=== PATIENT | female | born 1945 | race Caucasian/White ===

== ENCOUNTER 2017-07-31 22:18 | Emergency (ER) | payer MEDICARE, OTHER ==
[~2017-07-31] VITALS: Ht 170.2 cm; Wt 107.0 kg
[~2017-07-31 22:18] MED LIST: ADVAIR 500/501 EA INH; ALLOPURINOL300 MG PO; BENICAR20 MG PO; METFORMIN HCL500 MG PO; MONTELUKAST SOD10 MG PO; OMEGA PLUS; PRAVASTATIN SOD40 MG PO; PROBIOTIC; VENTOLIN HFA18 GM; Z VITAMIN D PO; Z.0.BENTYL20 MG PO; Z.0.GLUCOPHAGE1000 M PO; Z.0.PRAVACHOL80 MG PO; Z.0.PROTONIX40 MG PO; Z.0.SYNTHROID175 MCG PO; Z.1.LISINOPRIL-HCT1 PO
[2017-07-31 23:09] LABS: BASOPHILS % 0.7 % (0.0-1.0); BILIRUBIN,URINE NEGATIVE (NEGATIVE); EOSINOPHILS # (AUTO) 0.1 (0.0-0.4); HEMOGLOBIN 12.4 g/dL (12.0-16.0); KETONES,URINE NEGATIVE (NEGATIVE); LEUKOCYTE ESTERASE ,URINE NEGATIVE (NEGATIVE); LYMPHOCYTES # (AUTO) 1.1 (1.0-3.2); LYMPHOCYTES % 20.5 % (18.0-39.1); MEAN CORPUSCULAR HEMOGLOBIN 31.2 pg (28-32); MEAN CORPUSCULAR HGB CONC 33.5 g/dL (31-35); MONOCYTES # (AUTO) 0.4 (0.2-0.8); MONOCYTES % 8.1 % (4.4-11.3); NEUTROPHILS # (AUTO) 3.7 (2.1-6.9); NEUTROPHILS % 68.3 % (38.7-80.0); NITRITE,URINE NEGATIVE (NEGATIVE); PLATELET COUNT 193 x10e3/uL (140-360); PROTEIN,URINE DIPSTICK NEGATIVE (NEGATIVE); RED BLOOD COUNT 3.98 x10e6/uL (3.6-5.1); RED CELL DISTRIBUTION WIDTH 13.9 % (11.7-14.4); URINE UROBILINOGEN 0.2 mg/dL (0.2 - 1)
[2017-07-31 23:10] LABS: CLARITY,URINE CLEAR (CLEAR); COLOR,URINE YELLOW (YELLOW)
[2017-07-31 23:21] LABS: INR 1.02; PARTIAL THROMBOPLASTIN TIME 24.8 seconds (23.8-35.5); PROTHROMBIN TIME 12.6 seconds (11.9-14.5)
[2017-07-31 23:24] LABS: BACTERIA,URINE RARE /HPF; EPITHELIAL CELLS,URINE FEW /LPF; RBC,URINE 0-5 /HPF (0-5); WBC,URINE (MAN) 0-5 /HPF (0-5)
[2017-07-31 23:35] LABS: ALANINE AMINOTRANSFERASE 16 IU/L (0-55); ALBUMIN 4.2 g/dL (3.5-5.0); ALBUMIN/GLOBULIN RATIO 1.4 (0.8-2.0); ALKALINE PHOSPHATASE 66 IU/L (40-150); ANION GAP 13.8 mmol/L (8-16); BLOOD UREA NITROGEN 22 mg/dL (7-26); BUN/CREATININE RATIO 25 (6-25); CALCIUM 9.7 mg/dL (8.4-10.2); CARBON DIOXIDE 28 mmol/L (22-29); CHLORIDE 104 mmol/L (98-107); CREATINE KINASE 42 IU/L (29-168); CREATININE, SERUM 0.87 mg/dL (0.57-1.11); EST GLOMERULAR FILTRATION RATE > 60 ML/MIN (60-); GLUCOSE 109 mg/dL (74-118); MAGNESIUM 1.7 MG/DL (1.3-2.1); POTASSIUM 3.8 mmol/L (3.5-5.1); SODIUM 142 mmol/L (136-145)
--- NOTE | 2017-08-01 00:26 | Diagnostic Imaging Report ---
EXAMINATION: CHEST 2 VIEWS INDICATION: Shortness of breath COMPARISON: None FINDINGS: TUBES and LINES: None. LUNGS: Lungs are well inflated. Left lower lobe retrocardiac atelectasis. There is no evidence of pneumonia or pulmonary edema. PLEURA: No pleural effusion or pneumothorax. HEART AND MEDIASTINUM: The cardiomediastinal silhouette is unremarkable. There are atherosclerotic calcifications within the aorta. BONES AND SOFT TISSUES: No acute osseous lesion. Soft tissues are unremarkable. UPPER ABDOMEN: No free air under the diaphragm. IMPRESSION: No acute thoracic abnormality. Signed by: Dr. Guevara Leavitt M.D. on 08/01/2017 12:23 AM
[2017-08-01 01:03] VITALS: BP 141/81
== END 2017-08-01 01:18 | disposition home or self-care (01) ==
LOC: ER 22:18
DX: R00.2 Palpitations (principal)
CPT/HCPCS: 36415; 71046; 80053; 81001; 82550; 82553; 83735; 84484; 85025; 85610; 85730; 87086; 93005; 99284

== ENCOUNTER → 2019-03-08 | Day surgery (SDC) | payer MEDICARE, OTHER ==
[~2019-03-08] MED LIST changes: +ACTONEL35 MG PO; +ALBUTEROL0.63 MG/3 NEB; +ATORVASTATIN CA20 MG PO; +FENTANYL CITRATE/PF 100MCG/2 ML INJ ONE; +MIDAZOLAM HCL 2 MG/2 ML VIAL ONE; +OR PHACO EYE KIT ONE; +PREOP PHACO EYE KIT ONE; +SYMBICORT 16010.2 GM INH; +SYNTHROID50 MCG PO; +VENTOLIN HFA18 GM INH
--- OUTSIDE RECORDS SUMMARY | 2019-03-08 06:16 | XMS REPORT ---
Author Author [facility] Address Unknown Phone Unavailable Care Team Providers Care Date Pitter Name Role Phone Patrick SETH Unavailable Unavailable Problems This patient has no known problems. Allergies, Adverse Reactions, Alerts This patient has no known allergies or adverse reactions. Medications This patient has no known medications. Results Test Description Test Time Test Comments Text Results Atomic Results Result Comments CHEST 2 VIEWS [place] [address] Patient Name: HUSAM MARQUEZ MR #: [id number] : 1945 Age/Sex: 72/F Req #: [id number] Adm Physician: Ordered by: AVA SETH MD Report #: [id number] Location: ER Room/Bed: Procedure: [id number] DX/CHEST 2 VIEWS Exam Date: 07/31/17 Exam Time: 2335 REPORT STATUS: Signed EXAMINATION: CHEST 2 VIEWS INDICATION: Shortness of breath COMPARISON: None FINDINGS: TUBES and LINES: None. LUNGS: Lungs are well inflated. Left lower lobe retrocardiac atelectasis. There is no evidence of pneumonia or pulmonary edema. PLEURA: No pleural effusion or pneumothorax. HEART AND MEDIASTINUM: The cardiomediastinal silhouette is unremarkable. There are atherosclerotic calcifications within the aorta. BONES AND SOFT TISSUES: No acute osseous lesion. Soft tissues are unremarkable. UPPER ABDOMEN: No free air under the diaphragm. IMPRESSION: No acute thoracic abnormality. Signed by: Dr. Guevara Leavitt M.D. on 08/01/2017 12:23 AM Dictated By: GUEVARA RESTREPO MD Transcribed By: KING on 08/01/1722 COPY TO: AVA SETH MD
[2019-03-08 08:40] VITALS: BP 144/81
== END | disposition home or self-care (01) ==
LOC: OR 06:08
PROVIDERS: ATTEND Ophthalmology
DX: H25.12 Age-related nuclear cataract, left eye (principal); E03.9 Hypothyroidism, unspecified; I10 Essential (primary) hypertension; J44.9 Chronic obstructive pulmonary disease, unspecified; E11.9 Type 2 diabetes mellitus without complications; Z88.8 Allergy status to other drugs, medicaments and biological substances; Z87.891 Personal history of nicotine dependence
CPT/HCPCS: 66984; J2250; J3010

== ENCOUNTER 2020-12-14 19:26 | Emergency (ER) | payer MEDICARE, OTHER ==
[~2020-12-14] VITALS: Ht 170.2 cm; Wt 107.0 kg
[~2020-12-14 19:26] MED LIST changes: -FENTANYL CITRATE/PF 100MCG/2 ML INJ ONE; -MIDAZOLAM HCL 2 MG/2 ML VIAL ONE; -OR PHACO EYE KIT ONE; -PREOP PHACO EYE KIT ONE
[2020-12-14] MEDS ORDERED: SODIUM CHLORIDE 0.9% 50ML 50 ML ONE (20:54)
[2020-12-14] MEDS ORDERED: IOPAMIDOL 370 MG/ML 200 ML INFUS..BTL INJ ONE (20:54)
[2020-12-14] MEDS ORDERED: AZITHROMYCIN250 MG PO (23:44)
[2020-12-14] MEDS ORDERED: PREDNISONE20 MG PO (23:44)
[2020-12-14] MEDS ORDERED: VENTOLIN HFA18 GM INH (23:44)
== END 2020-12-14 23:55 | disposition home or self-care (01) ==
LOC: FSED 19:48
DX: R06.00 Dyspnea, unspecified (principal); I27.82 Chronic pulmonary embolism; R07.89 Other chest pain; K21.9 Gastro-esophageal reflux disease without esophagitis; Z87.19 Personal history of other diseases of the digestive system
CPT/HCPCS: 71260; 80053; 81003; 82553; 83880; 84484; 85025; 85379; 99284; Q9967

== ENCOUNTER 2022-09-26 11:47 | Inpatient (IN) | payer MEDICARE, OTHER ==
[~2022-09-26] VITALS: Ht 167.6 cm; Wt 117.9 kg
[2022-09-26] VITALS (7 sets, daily range): BP systolic 14–136; BP diastolic 65–80
[~2022-09-26 11:47] MED LIST changes: +AZITHROMYCIN250 MG PO; +PREDNISONE20 MG PO
[2022-09-26] MEDS ORDERED: METOPROLOL SUCC50 MG PO (12:54)
[2022-09-26] MEDS ORDERED: SYNTHROID137 MCG PO (12:54)
[2022-09-26] MEDS ORDERED: FUROSEMIDE20 MG PO (13:05)
[2022-09-26] MEDS ORDERED: BREZTRI AEROS10.7 GM INH (13:05)
[2022-09-26] MEDS ORDERED: ELIQUIS5 MG PO (13:05)
[2022-09-26] MEDS ORDERED: IPRAT-ALBUT 0.5-3 ML INH (13:05)
[2022-09-26] MEDS ORDERED: SIMETHICONE 80 MG CHEW PO PRN (13:30)
[2022-09-26] MEDS ORDERED: DOCUSATE SODIUM 100 MG CAP PO PRN (13:30)
[2022-09-26] MEDS ORDERED: HYDRALAZINE HCL 20 MG/ML VIAL IV PRN (13:30)
[2022-09-26] MEDS ORDERED: DEXTROSE 50% SYRINGE 50 ML IV PRN (13:30)
[2022-09-26] MEDS ORDERED: BENZONATATE 100 MG CAP PO PRN (13:30)
[2022-09-26] MEDS ORDERED: DIPHENHYDRAMINE HCL 25 MG CAP PO PRN (13:30)
[2022-09-26] MEDS ORDERED: ONDANSETRON HCL INJ 2MG/ML 2ML 2 MG/ML VIAL IV PRN (13:30)
[2022-09-26] MEDS ORDERED: LIDOCAINE 4% PATCH TP PRN (13:30)
[2022-09-26] MEDS ORDERED: POTASSIUM CHLORIDE 20 MEQ TAB CR PO PRN (13:30)
[2022-09-26] MEDS ORDERED: DICYCLOMINE HCL10 MG PO (13:42)
[2022-09-26] MEDS ORDERED: URO-MP CAPSULE1 EACH PO (13:42)
[2022-09-26] MEDS ORDERED: SULFAMETHOXAZO1 EACH PO (13:42)
[2022-09-26] MEDS ORDERED: [UNRECOGNIZED DRUG - OTHER] PO PRN (14:30)
[2022-09-26] MEDS ORDERED: DICYCLOMINE HCL 10 MG CAP PO PRN (14:30)
[2022-09-26] MEDS: TRAMADOL HCL 50 MG TAB PO PRN ×2 (15:44→21:29)
[2022-09-26] MEDS ORDERED: APIXABAN 5 MG TABLET PO SCH (17:00)
[2022-09-26] MEDS ORDERED: METOPROLOL SUCCINATE 50 MG TAB XL PO SCH (17:00)
[2022-09-26] MEDS: ALBUTEROL/IPRATROPIUM 3 ML NEB NEB PRN (18:45)
[2022-09-26] MEDS: NON-FORMULARY MEDICATION (Budesonide/Glycopyr/Formoterol (Breztri Aerosphere Inhaler) 2 IN INH SCH (19:50)
[2022-09-26] MEDS: APIXABAN 5 MG TABLET PO SCH (20:37)
[2022-09-26] MEDS: METOPROLOL SUCCINATE 50 MG TAB XL PO SCH (20:37)
[2022-09-26] MEDS: LEVOTHYROXINE SODIUM 25 MCG TABLET PO SCH (20:38)
[2022-09-26] MEDS: LEVOTHYROXINE SODIUM 112 MCG TAB PO SCH (20:38)
[2022-09-26] MEDS ORDERED: MELATONIN 5 MG TABLET PO PRN (21:00)
[2022-09-27] VITALS (7 sets, daily range): BP systolic 127–143; BP diastolic 64–78
[2022-09-27] MEDS: TRAMADOL HCL 50 MG TAB PO PRN ×2 (04:47→12:45)
[2022-09-27] MEDS: ALBUTEROL/IPRATROPIUM 3 ML NEB NEB PRN ×2 (06:00→18:12)
[2022-09-27] MEDS: NON-FORMULARY MEDICATION (Budesonide/Glycopyr/Formoterol (Breztri Aerosphere Inhaler) 2 IN INH SCH ×2 (07:00→19:00)
[2022-09-27 07:34] LABS: ALBUMIN 3.6 g/dL (3.5-5.0); ALBUMIN/GLOBULIN RATIO 1.2 (0.8-2.0); ANION GAP 14.6 mmol/L (8-16); CALCIUM 9.4 mg/dL (8.4-10.2); CREATININE, SERUM 0.74 mg/dL (0.57-1.11); POTASSIUM 4.6 mmol/L (3.5-5.1)
[2022-09-27 07:59] LABS: THYROID STIMULATING HORMONE 2.649 uIU/mL (0.350-4.940)
[2022-09-27] MEDS ORDERED: APIXABAN 5 MG TABLET PO SCH (09:00)
[2022-09-27] MEDS: APIXABAN 5 MG TABLET PO SCH ×2 (09:50→21:03)
[2022-09-27] MEDS: METOPROLOL SUCCINATE 50 MG TAB XL PO SCH ×2 (09:50→21:03)
[2022-09-27] MEDS: LEVOTHYROXINE SODIUM 112 MCG TAB PO SCH (21:03)
[2022-09-27] MEDS: LEVOTHYROXINE SODIUM 25 MCG TABLET PO SCH (21:04)
[2022-09-27] MEDS: Vancomycin IV 1 GM in SODIUM CHLORIDE 0.9% 250ML 250 ML IV SCH (21:04)
[2022-09-28] VITALS (8 sets, daily range): BP systolic 117–136; BP diastolic 55–88
[2022-09-28] MEDS: TRAMADOL HCL 50 MG TAB PO PRN (04:01)
[2022-09-28 06:24] LABS: BASOPHILS % 0.5 % (0.0-1.0); EOSINOPHILS # (AUTO) 0.1 (0.0-0.4); EOSINOPHILS % 2.5 % (0.0-6.0); HEMATOCRIT 33.1 % (34.2-44.1); HEMOGLOBIN 10.7 g/dL (12.0-16.0); LYMPHOCYTES # (AUTO) 0.8 (1.0-3.2); LYMPHOCYTES % 19.8 % (18.0-39.1); MEAN CORPUSCULAR HGB CONC 32.3 g/dL (31-35); MEAN CORPUSCULAR VOLUME 95.9 fL (81-99); MONOCYTES # (AUTO) 0.4 (0.2-0.8); MONOCYTES % 9.3 % (4.4-11.3); NEUTROPHILS # (AUTO) 2.7 (2.1-6.9); NEUTROPHILS % 67.4 % (38.7-80.0); PLATELET COUNT 141 x10e3/uL (140-360); RED BLOOD COUNT 3.45 x10e6/uL (3.6-5.1); RED CELL DISTRIBUTION WIDTH 13.2 % (11.7-14.4)
[2022-09-28 06:37] LABS: ANION GAP 13.2 mmol/L (8-16); CALCIUM 8.8 mg/dL (8.4-10.2); CREATININE, SERUM 0.8 mg/dL (0.57-1.11); POTASSIUM 4.2 mmol/L (3.5-5.1)
[2022-09-28] MEDS: NON-FORMULARY MEDICATION (Budesonide/Glycopyr/Formoterol (Breztri Aerosphere Inhaler) 2 IN INH SCH ×2 (07:00→19:00)
[2022-09-28] MEDS: APIXABAN 5 MG TABLET PO SCH ×2 (09:12→20:28)
[2022-09-28] MEDS: POLYETHYLENE GLYCOL 3350 17 GM PACK PO SCH (09:12)
[2022-09-28] MEDS: Vancomycin IV 1 GM in SODIUM CHLORIDE 0.9% 250ML 250 ML IV SCH ×2 (09:15→20:28)
[2022-09-28] MEDS: METOPROLOL SUCCINATE 50 MG TAB XL PO SCH ×2 (09:15→20:30)
[2022-09-28] MEDS: FLUCONAZOLE 100 MG TAB PO SCH (15:53)
[2022-09-28] MEDS: NYSTATIN 15 GM POWDER UD BTL TOP SCH (17:11)
[2022-09-28] MEDS: ALBUTEROL/IPRATROPIUM 3 ML NEB NEB PRN (19:20)
[2022-09-28] MEDS: LEVOTHYROXINE SODIUM 25 MCG TABLET PO SCH (20:29)
[2022-09-28] MEDS: LEVOTHYROXINE SODIUM 112 MCG TAB PO SCH (20:29)
[2022-09-28] MEDS: ACETAMINOPHEN 325 MG TAB PO PRN (21:27)
[2022-09-29] VITALS (9 sets, daily range): BP systolic 120–158; BP diastolic 66–92
[2022-09-29] MEDS ORDERED: SODIUM CHLORIDE 0.9% 250ML 250 ML ONE (05:27)
[2022-09-29] MEDS: APIXABAN 5 MG TABLET PO SCH ×2 (08:55→20:23)
[2022-09-29] MEDS: FLUCONAZOLE 100 MG TAB PO SCH (08:55)
[2022-09-29] MEDS: Vancomycin IV 1 GM in SODIUM CHLORIDE 0.9% 250ML 250 ML IV SCH (08:55)
[2022-09-29] MEDS: NYSTATIN 15 GM POWDER UD BTL TOP SCH ×2 (08:56→17:19)
[2022-09-29] MEDS: POLYETHYLENE GLYCOL 3350 17 GM PACK PO SCH (08:56)
[2022-09-29] MEDS: METOPROLOL SUCCINATE 50 MG TAB XL PO SCH ×2 (08:56→20:24)
[2022-09-29] MEDS: NON-FORMULARY MEDICATION (Budesonide/Glycopyr/Formoterol (Breztri Aerosphere Inhaler) 2 IN INH SCH ×2 (08:56→18:30)
[2022-09-29] MEDS: LEVOTHYROXINE SODIUM 25 MCG TABLET PO SCH (20:23)
[2022-09-29] MEDS: LEVOTHYROXINE SODIUM 112 MCG TAB PO SCH (20:23)
[2022-09-30] VITALS: BP 124/55
[2022-09-30 04:00] VITALS: BP 128/56
[2022-09-30 06:45] LABS: BASOPHILS % 0.5 % (0.0-1.0); EOSINOPHILS # (AUTO) 0.1 (0.0-0.4); EOSINOPHILS % 2.4 % (0.0-6.0); HEMATOCRIT 33.9 % (34.2-44.1); HEMOGLOBIN 10.9 g/dL (12.0-16.0); LYMPHOCYTES # (AUTO) 0.8 (1.0-3.2); MEAN CORPUSCULAR HEMOGLOBIN 30.8 pg (28-32); MEAN CORPUSCULAR HGB CONC 32.2 g/dL (31-35); MEAN CORPUSCULAR VOLUME 95.8 fL (81-99); MONOCYTES # (AUTO) 0.4 (0.2-0.8); MONOCYTES % 9.3 % (4.4-11.3); NEUTROPHILS # (AUTO) 2.5 (2.1-6.9); NEUTROPHILS % 66.5 % (38.7-80.0); PLATELET COUNT 162 x10e3/uL (140-360); RED BLOOD COUNT 3.54 x10e6/uL (3.6-5.1); RED CELL DISTRIBUTION WIDTH 12.9 % (11.7-14.4)
[2022-09-30 07:13] LABS: ANION GAP 11.1 mmol/L (8-16); CALCIUM 8.7 mg/dL (8.4-10.2); CREATININE, SERUM 0.73 mg/dL (0.57-1.11); POTASSIUM 4.1 mmol/L (3.5-5.1)
[2022-09-30] MEDS: NON-FORMULARY MEDICATION (Budesonide/Glycopyr/Formoterol (Breztri Aerosphere Inhaler) 2 IN INH SCH (07:32)
[2022-09-30] MEDS: ACETAMINOPHEN 325 MG TAB PO PRN (07:32)
[2022-09-30] MEDS: ALBUTEROL/IPRATROPIUM 3 ML NEB NEB PRN (08:00)
[2022-09-30 08:36] VITALS: BP 153/87
[2022-09-30] MEDS: FLUCONAZOLE 100 MG TAB PO SCH (08:47)
[2022-09-30] MEDS: POLYETHYLENE GLYCOL 3350 17 GM PACK PO SCH (08:47)
[2022-09-30] MEDS: METOPROLOL SUCCINATE 50 MG TAB XL PO SCH (08:47)
[2022-09-30] MEDS: APIXABAN 5 MG TABLET PO SCH (08:48)
[2022-09-30] MEDS: NYSTATIN 15 GM POWDER UD BTL TOP SCH (08:49)
[2022-09-30 09:00] VITALS: BP 153/87
[2022-09-30] MEDS ORDERED: AZITHROMYCIN 250 MG TAB PO SCH (09:00)
[2022-09-30] MEDS ORDERED: AMOXICILLIN/CLAVULANATE K 875 MG TAB PO ONE (10:45)
[2022-09-30] MEDS ORDERED: IBUPROFEN 600 MG TAB PO ONE (10:45)
[2022-09-30 12:55] VITALS: BP 141/74
== END 2022-09-30 14:27 | disposition home or self-care (01) | DRG 194 ==
LOC: MED/SURG3 12:09
PROVIDERS: ADMIT Internal Medicine; ATTEND Internal Medicine
DX: J18.9 Pneumonia, unspecified organism (principal); Z68.41 Body mass index [BMI] 40.0-44.9, adult; R06.03 Acute respiratory distress; E66.01 Morbid (severe) obesity due to excess calories; Z86.711 Personal history of pulmonary embolism; Z79.01 Long term (current) use of anticoagulants; G47.33 Obstructive sleep apnea (adult) (pediatric); E03.9 Hypothyroidism, unspecified; I25.10 Atherosclerotic heart disease of native coronary artery without angina pectoris; R07.89 Other chest pain; Z20.822 Contact with and (suspected) exposure to COVID-19
CPT/HCPCS: 36415; 80048; 80053; 80202; 83735; 84443; 84484; 85025; 87040; 93970; 94640; 94799; J0696; J7050

== ENCOUNTER 2023-03-23 21:27 | Inpatient (IN) | payer MEDICARE, OTHER ==
[~2023-03-23] VITALS: Ht 167.6 cm; Wt 116.1 kg
[~2023-03-23 21:27] MED LIST changes: +BREZTRI AEROS10.7 GM INH; +DICYCLOMINE HCL10 MG PO; +ELIQUIS5 MG PO; +FUROSEMIDE20 MG PO; +IPRAT-ALBUT 0.5-3 ML INH; +METOPROLOL SUCC50 MG PO; +SULFAMETHOXAZO1 EACH PO; +SYNTHROID137 MCG PO; +URO-MP CAPSULE1 EACH PO
[2023-03-23] MEDS ORDERED: ADENOSINE 6MG/2ML 3 ML ONE (21:35)
[2023-03-23] MEDS ORDERED: SODIUM CHLORIDE 0.9% 500ML 500 ML ONE (21:41)
[2023-03-23] MEDS ORDERED: METOPROLOL TARTRATE INJ 1 MG/ML VIAL ONE (21:44)
[2023-03-23] MEDS ORDERED: METOPROLOL TARTRATE INJ 1 MG/ML VIAL IV ONE (21:45)
[2023-03-23] MEDS ORDERED: ADENOSINE 6 MG/2 ML VIAL IV ONE (21:45)
[2023-03-23] MEDS ORDERED: AMIODARONE 900MG 900 MG in Premix Bag 1 BAG IV SCH ×2 (22:00→23:15)
[2023-03-23] MEDS ORDERED: AMIODARONE HCL 150 MG/100 ML BAG IV ONE (22:00)
[2023-03-23] MEDS ORDERED: SODIUM CHLORIDE 0.9% 500ML 500 ML IV ONE (22:00)
[2023-03-23 22:03] LABS: INR 1.01; PARTIAL THROMBOPLASTIN TIME 25.8 seconds (23.8-35.5); PROTHROMBIN TIME 13.9 seconds (11.9-14.5)
[2023-03-23 22:11] LABS: BASOPHILS # (AUTO) 0.1 (0.0-0.1); BASOPHILS % 0.8 % (0.0-1.0); EOSINOPHILS # (AUTO) 0.2 (0.0-0.4); EOSINOPHILS % 3.3 % (0.0-6.0); HEMATOCRIT 38.9 % (34.2-44.1); HEMOGLOBIN 13.7 g/dL (12.0-16.0); LYMPHOCYTES # (AUTO) 1.4 (1.0-3.2); LYMPHOCYTES % 22.1 % (18.0-39.1); MEAN CORPUSCULAR HEMOGLOBIN 31.9 pg (28-32); MEAN CORPUSCULAR HGB CONC 35.2 g/dL (31-35); MEAN CORPUSCULAR VOLUME 90.7 fL (81-99); MONOCYTES # (AUTO) 0.5 (0.2-0.8); MONOCYTES % 7.8 % (4.4-11.3); NEUTROPHILS # (AUTO) 4.1 (2.1-6.9); NEUTROPHILS % 65.5 % (38.7-80.0); PLATELET COUNT 209 x10e3/uL (140-360); RED BLOOD COUNT 4.29 x10e6/uL (3.6-5.1); RED CELL DISTRIBUTION WIDTH 13.8 % (11.7-14.4)
[2023-03-23 22:12] LABS: ALBUMIN 4.2 g/dL (3.5-5.0); ALBUMIN/GLOBULIN RATIO 1.7 (0.8-2.0); BILIRUBIN,TOTAL 0.9 mg/dL (0.2-1.2); CALCIUM 9.7 mg/dL (8.4-10.2); CREATININE, SERUM 1.2 mg/dL (0.57-1.11); TOTAL PROTEIN 6.7 g/dL (6.5-8.1)
[2023-03-23] MEDS: AMIODARONE 900MG 500 ML IV SCH (22:15)
[2023-03-23] MEDS ORDERED: METOPROLOL SUCCINATE 50 MG TAB XL PO ONE (22:45)
[2023-03-24] VITALS (84 sets, daily range): BP systolic 87–161; BP diastolic 53–107; PULSE 36–134; RESP 14–32; TEMP 97.2–98.7; O2SAT 82–100
[2023-03-24 05:42] LABS: BASOPHILS % 0.5 % (0.0-1.0); EOSINOPHILS # (AUTO) 0.2 (0.0-0.4); EOSINOPHILS % 3.8 % (0.0-6.0); HEMOGLOBIN 12.5 g/dL (12.0-16.0); LYMPHOCYTES # (AUTO) 0.8 (1.0-3.2); LYMPHOCYTES % 17.9 % (18.0-39.1); MEAN CORPUSCULAR HEMOGLOBIN 32.1 pg (28-32); MEAN CORPUSCULAR HGB CONC 34.7 g/dL (31-35); MEAN CORPUSCULAR VOLUME 92.3 fL (81-99); MONOCYTES # (AUTO) 0.4 (0.2-0.8); NEUTROPHILS % 67.3 % (38.7-80.0); PLATELET COUNT 158 x10e3/uL (140-360); RED CELL DISTRIBUTION WIDTH 13.6 % (11.7-14.4); WHITE BLOOD COUNT 4.42 x10e3/uL (4.8-10.8)
[2023-03-24 06:13] LABS: ALBUMIN 3.6 g/dL (3.5-5.0); ALBUMIN/GLOBULIN RATIO 1.8 (0.8-2.0); ANION GAP 12.7 mmol/L (8-16); BILIRUBIN,TOTAL 0.6 mg/dL (0.2-1.2); CALCIUM 9.1 mg/dL (8.4-10.2); CHOL/HDL RATIO 2.6 (3.0-3.6); CREATININE, SERUM 0.85 mg/dL (0.57-1.11); POTASSIUM 3.7 mmol/L (3.5-5.1); TOTAL PROTEIN 5.6 g/dL (6.5-8.1)
[2023-03-24 06:40] LABS: TROPONIN I 0.003 ng/mL (0-0.300)
[2023-03-24] MEDS ORDERED: SIMETHICONE 80 MG CHEW PO PRN (07:15)
[2023-03-24] MEDS ORDERED: ONDANSETRON HCL INJ 2MG/ML 2ML 2 MG/ML VIAL IV PRN (07:15)
[2023-03-24] MEDS ORDERED: METOPROLOL TARTRATE 25 MG TAB PO SCH (07:15)
[2023-03-24] MEDS ORDERED: ALBUTEROL/IPRATROPIUM 3 ML NEB NEB PRN (07:15)
[2023-03-24] MEDS ORDERED: DICYCLOMINE HCL 10 MG CAP PO PRN (07:15)
[2023-03-24] MEDS ORDERED: MELATONIN 3 MG TAB PO PRN (07:15)
[2023-03-24] MEDS ORDERED: ACETAMINOPHEN 325 MG TAB PO PRN (07:15)
[2023-03-24] MEDS ORDERED: ENOXAPARIN SODIUM INJ 100 MG/ML SYR SC SCH (08:00)
[2023-03-24] MEDS: FAMOTIDINE 20 MG TAB PO SCH ×2 (09:53→17:38)
[2023-03-24] MEDS: APIXABAN 5 MG TABLET PO SCH ×2 (10:47→20:43)
[2023-03-24] MEDS: METOPROLOL SUCCINATE 50 MG TAB XL PO SCH ×2 (10:47→20:43)
[2023-03-24 15:36] LABS: TROPONIN I < 0.001 ng/mL (0-0.300)
[2023-03-24 15:53] LABS: CREATINE KINASE 44 IU/L (29-168)
[2023-03-24 17:02] LABS: CLARITY,URINE SL CLOUDY (CLEAR); COLOR,URINE YELLOW (YELLOW)
[2023-03-24 17:03] LABS: BILIRUBIN,URINE NEGATIVE (NEGATIVE); GLUCOSE, URINE NEGATIVE (NEGATIVE); KETONES,URINE NEGATIVE (NEGATIVE); LEUKOCYTE ESTERASE ,URINE SMALL (NEGATIVE); NITRITE,URINE NEGATIVE (NEGATIVE); PH,URINE 5.5 (5 - 7); PROTEIN,URINE DIPSTICK NEGATIVE (NEGATIVE); URINE UROBILINOGEN 0.2 mg/dL (0.2 - 1)
[2023-03-24 17:11] LABS: BACTERIA,URINE MODERATE /HPF; TRANSITIONAL EPI CELLS,URINE FEW
[2023-03-24] MEDS: ZINC OXIDE 30 GM TUBE TOP SCH (17:38)
[2023-03-24] MEDS: AMIODARONE HCL 200 MG TAB PO SCH (17:38)
[2023-03-24] MEDS: NYSTATIN 15 GM POWDER UD BTL TOP SCH (18:38)
[2023-03-24] MEDS: LEVOTHYROXINE SODIUM 112 MCG TAB PO SCH (20:42)
[2023-03-24] MEDS: LEVOTHYROXINE SODIUM 25 MCG TABLET PO SCH (20:42)
[2023-03-25] VITALS (35 sets, daily range): BP systolic 79–126; BP diastolic 41–82; PULSE 84–112; RESP 14–29; TEMP 97.3–97.6; O2SAT 96–100
[2023-03-25 06:49] LABS: BASOPHILS % 0.7 % (0.0-1.0); EOSINOPHILS # (AUTO) 0.2 (0.0-0.4); EOSINOPHILS % 3.7 % (0.0-6.0); HEMATOCRIT 36.2 % (34.2-44.1); HEMOGLOBIN 13.2 g/dL (12.0-16.0); LYMPHOCYTES # (AUTO) 0.8 (1.0-3.2); LYMPHOCYTES % 17.4 % (18.0-39.1); MEAN CORPUSCULAR HEMOGLOBIN 33.5 pg (28-32); MEAN CORPUSCULAR HGB CONC 36.5 g/dL (31-35); MEAN CORPUSCULAR VOLUME 91.9 fL (81-99); MONOCYTES # (AUTO) 0.4 (0.2-0.8); MONOCYTES % 8.2 % (4.4-11.3); NEUTROPHILS # (AUTO) 3.1 (2.1-6.9); NEUTROPHILS % 69.8 % (38.7-80.0); PLATELET COUNT 148 x10e3/uL (140-360); RED BLOOD COUNT 3.94 x10e6/uL (3.6-5.1); WHITE BLOOD COUNT 4.37 x10e3/uL (4.8-10.8)
[2023-03-25 07:21] LABS: ANION GAP 11.2 mmol/L (8-16); CREATININE, SERUM 0.83 mg/dL (0.57-1.11); MAGNESIUM 1.7 MG/DL (1.3-2.1); PHOSPHORUS 2.9 MG/DL (2.3-4.7); POTASSIUM 4.2 mmol/L (3.5-5.1)
[2023-03-25] MEDS: APIXABAN 5 MG TABLET PO SCH ×2 (08:20→16:05)
[2023-03-25] MEDS: FAMOTIDINE 20 MG TAB PO SCH ×2 (08:20→16:12)
[2023-03-25] MEDS: AMIODARONE HCL 200 MG TAB PO SCH ×2 (08:21→16:05)
[2023-03-25] MEDS: METOPROLOL SUCCINATE 50 MG TAB XL PO SCH ×2 (08:23→16:11)
[2023-03-25] MEDS: ZINC OXIDE 30 GM TUBE TOP SCH ×3 (08:24→21:00)
[2023-03-25] MEDS: NYSTATIN 15 GM POWDER UD BTL TOP SCH ×2 (08:24→16:11)
[2023-03-25] MEDS: LEVOTHYROXINE SODIUM 25 MCG TABLET PO SCH (21:15)
[2023-03-25] MEDS: LEVOTHYROXINE SODIUM 112 MCG TAB PO SCH (21:15)
[2023-03-26] VITALS: BP_SYST 106; BP_SYST 107; BP_DIAS 67; BP_DIAS 76; PULSE 110; PULSE 80; RESP 18; RESP 20; TEMP 97.4; TEMP 97.5; O2SAT 100
[2023-03-26 05:10] LABS: BASOPHILS % 0.5 % (0.0-1.0); EOSINOPHILS # (AUTO) 0.2 (0.0-0.4); EOSINOPHILS % 4.4 % (0.0-6.0); HEMATOCRIT 37.4 % (34.2-44.1); LYMPHOCYTES # (AUTO) 0.8 (1.0-3.2); LYMPHOCYTES % 20.6 % (18.0-39.1); MEAN CORPUSCULAR HEMOGLOBIN 31.9 pg (28-32); MEAN CORPUSCULAR HGB CONC 34.8 g/dL (31-35); MEAN CORPUSCULAR VOLUME 91.7 fL (81-99); MONOCYTES # (AUTO) 0.4 (0.2-0.8); MONOCYTES % 9.1 % (4.4-11.3); NEUTROPHILS # (AUTO) 2.7 (2.1-6.9); NEUTROPHILS % 65.2 % (38.7-80.0); PLATELET COUNT 143 x10e3/uL (140-360); RED BLOOD COUNT 4.08 x10e6/uL (3.6-5.1); RED CELL DISTRIBUTION WIDTH 13.8 % (11.7-14.4); WHITE BLOOD COUNT 4.08 x10e3/uL (4.8-10.8)
[2023-03-26 05:21] VITALS: BP 115/51; PULSE 86; RESP 20; TEMP 98; O2SAT 98
[2023-03-26 05:34] LABS: ANION GAP 13.1 mmol/L (8-16); CALCIUM 9.1 mg/dL (8.4-10.2); CREATININE, SERUM 0.85 mg/dL (0.57-1.11); MAGNESIUM 1.7 MG/DL (1.3-2.1); POTASSIUM 4.1 mmol/L (3.5-5.1)
[2023-03-26] MEDS ORDERED: AMIODARONE HCL200 MG PO (05:38)
[2023-03-26] MEDS ORDERED: CEPHALEXIN500 MG PO (05:39)
[2023-03-26 08:10] VITALS: BP 115/51
[2023-03-26] MEDS: METOPROLOL SUCCINATE 50 MG TAB XL PO SCH (08:10)
[2023-03-26] MEDS: FAMOTIDINE 20 MG TAB PO SCH (08:10)
[2023-03-26] MEDS: APIXABAN 5 MG TABLET PO SCH (08:10)
[2023-03-26] MEDS: AMIODARONE HCL 200 MG TAB PO SCH (08:11)
[2023-03-26 08:50] VITALS: PULSE 106; RESP 18; O2SAT 97
[2023-03-30] MEDS ORDERED: SYNTHROID75 MCG PO (18:44)
[2023-04-01] MEDS ORDERED: AMIODARONE HCL 200 MG TAB PO SCH (09:00)
== END 2023-03-26 09:05 | disposition home or self-care (01) | DRG 872 ==
LOC: ER 21:35 → ERHOLD 22:48 → ICU 23:55 → OBSVTOIN 03-24 07:02 → MED/SURG 03-25 19:20
PROVIDERS: ADMIT Internal Medicine; ATTEND Internal Medicine
DX: A41.9 Sepsis, unspecified organism (principal); N39.0 Urinary tract infection, site not specified; I48.20 Chronic atrial fibrillation, unspecified; N17.9 Acute kidney failure, unspecified; Z68.41 Body mass index [BMI] 40.0-44.9, adult; E46 Unspecified protein-calorie malnutrition; E66.01 Morbid (severe) obesity due to excess calories; G47.33 Obstructive sleep apnea (adult) (pediatric); E11.9 Type 2 diabetes mellitus without complications; E77.8 Other disorders of glycoprotein metabolism; E03.9 Hypothyroidism, unspecified; E78.5 Hyperlipidemia, unspecified; Z79.899 Other long term (current) drug therapy; Z79.01 Long term (current) use of anticoagulants; Z79.890 Hormone replacement therapy; K21.9 Gastro-esophageal reflux disease without esophagitis; K57.90 Diverticulosis of intestine, part unspecified, without perforation or abscess without bleeding; Z87.891 Personal history of nicotine dependence; I10 Essential (primary) hypertension; Z86.711 Personal history of pulmonary embolism
CPT/HCPCS: 36415; 71045; 80048; 80053; 80061; 81001; 82550; 83735; 84100; 84443; 84484; 85025; 85610; 85730; 93005; 94799; 99252; 99284; G0378; J0153; J0696; J1650; J2405; J7040; U0002

== ENCOUNTER → 2023-03-31 | Day surgery (SDC) | payer MEDICARE, OTHER ==
[~2023-03-31] VITALS: Ht 167.6 cm; Wt 115.7 kg
[~2023-03-31] MED LIST changes: +ALPRAZOLAM 0.5 MG TAB ONE; +AMIODARONE HCL200 MG PO; +BENZOCAINE 20% SPR 60 ML CAN ONE; +CEPHALEXIN500 MG PO; +DIPHENHYDRAMINE HCL 25 MG CAP ONE; +FENTANYL CITRATE/PF 100MCG/2 ML INJ ONE; +MIDAZOLAM HCL 2 MG/2 ML VIAL ONE; +SODIUM CHLORIDE 0.9% 1000ML 1,000 ML ONE; +SYNTHROID75 MCG PO
[2023-03-31 14:35] LABS: BASOPHILS % 0.4 % (0.0-1.0); EOSINOPHILS # (AUTO) 0.2 (0.0-0.4); EOSINOPHILS % 3.3 % (0.0-6.0); HEMATOCRIT 36.3 % (34.2-44.1); HEMOGLOBIN 12.7 g/dL (12.0-16.0); LYMPHOCYTES # (AUTO) 0.9 (1.0-3.2); LYMPHOCYTES % 18.9 % (18.0-39.1); MEAN CORPUSCULAR HEMOGLOBIN 31.5 pg (28-32); MEAN CORPUSCULAR VOLUME 90.1 fL (81-99); MONOCYTES # (AUTO) 0.4 (0.2-0.8); NEUTROPHILS # (AUTO) 3.4 (2.1-6.9); NEUTROPHILS % 69.2 % (38.7-80.0); PLATELET COUNT 183 x10e3/uL (140-360); RED BLOOD COUNT 4.03 x10e6/uL (3.6-5.1); RED CELL DISTRIBUTION WIDTH 13.6 % (11.7-14.4); WHITE BLOOD COUNT 4.88 x10e3/uL (4.8-10.8)
[2023-03-31 15:00] VITALS: BP 119/94; PULSE 87; RESP 17; TEMP 98.7; O2SAT 97
[2023-03-31 15:20] LABS: ALBUMIN 3.9 g/dL (3.5-5.0); ALBUMIN/GLOBULIN RATIO 1.6 (0.8-2.0); ANION GAP 11.4 mmol/L (8-16); CALCIUM 9.1 mg/dL (8.4-10.2); CHOL/HDL RATIO 2.8 (3.0-3.6); CREATININE, SERUM 0.87 mg/dL (0.57-1.11); POTASSIUM 4.4 mmol/L (3.5-5.1)
[2023-03-31 17:30] VITALS: BP 120/80; PULSE 61; RESP 16; O2SAT 95
[2023-03-31 17:45] VITALS: BP 118/81; PULSE 60; RESP 16; O2SAT 95
[2023-03-31 18:00] VITALS: BP 125/86; PULSE 60; RESP 16; O2SAT 95
[2023-03-31 18:15] VITALS: BP 119/86; PULSE 60; RESP 16; O2SAT 95
== END | disposition home or self-care (01) ==
LOC: CATH LAB 14:05
PROVIDERS: ATTEND Internal Medicine Interventional Cardiology
DX: I48.91 Unspecified atrial fibrillation (principal); I25.118 Atherosclerotic heart disease of native coronary artery with other forms of angina pectoris; E11.22 Type 2 diabetes mellitus with diabetic chronic kidney disease; I13.10 Hypertensive heart and chronic kidney disease without heart failure, with stage 1 through stage 4 chronic kidney disease, or unspecified chronic kidney disease; N18.9 Chronic kidney disease, unspecified; J45.909 Unspecified asthma, uncomplicated; Z71.3 Dietary counseling and surveillance; Z71.82 Exercise counseling; Z88.8 Allergy status to other drugs, medicaments and biological substances; Z91.048 Other nonmedicinal substance allergy status; Z79.02 Long term (current) use of antithrombotics/antiplatelets; Z79.899 Other long term (current) drug therapy; Z68.41 Body mass index [BMI] 40.0-44.9, adult
CPT/HCPCS: 92960; C8925; 36415; 80053; 80061; 83880; 85025; 93312; 93320; 93325; J2250; J7030

== ENCOUNTER 2024-04-26 09:54 | Inpatient (IN) | payer MEDICARE, OTHER ==
[~2024-04-26] VITALS: Ht 167.6 cm; Wt 115.7 kg
[2024-04-26] VITALS (13 sets, daily range): BP systolic 122–138; BP diastolic 75–105; PULSE 67–140; RESP 16–24; TEMP 97.9–98.3; O2SAT 94–100
[~2024-04-26 09:54] MED LIST changes: -ALPRAZOLAM 0.5 MG TAB ONE; -BENZOCAINE 20% SPR 60 ML CAN ONE; -DIPHENHYDRAMINE HCL 25 MG CAP ONE; -FENTANYL CITRATE/PF 100MCG/2 ML INJ ONE; -MIDAZOLAM HCL 2 MG/2 ML VIAL ONE; -SODIUM CHLORIDE 0.9% 1000ML 1,000 ML ONE
[2024-04-26 11:22] LABS: BASOPHILS % 0.5 % (0.0-1.0); EOSINOPHILS # (AUTO) 0.1 (0.0-0.4); EOSINOPHILS % 0.9 % (0.0-6.0); HEMATOCRIT 36.6 % (34.2-44.1); HEMOGLOBIN 11.6 g/dL (12.0-16.0); LYMPHOCYTES # (AUTO) 1.3 (1.0-3.2); LYMPHOCYTES % 22.2 % (18.0-39.1); MEAN CORPUSCULAR HEMOGLOBIN 31.1 pg (28-32); MEAN CORPUSCULAR HGB CONC 31.7 g/dL (31-35); MEAN CORPUSCULAR VOLUME 98.1 fL (81-99); MONOCYTES # (AUTO) 0.5 (0.2-0.8); MONOCYTES % 8.4 % (4.4-11.3); NEUTROPHILS # (AUTO) 3.9 (2.1-6.9); NEUTROPHILS % 67.8 % (38.7-80.0); PLATELET COUNT 227 x10e3/uL (140-360); RED BLOOD COUNT 3.73 x10e6/uL (3.6-5.1); RED CELL DISTRIBUTION WIDTH 13.3 % (11.7-14.4); WHITE BLOOD COUNT 5.71 x10e3/uL (4.8-10.8)
[2024-04-26] MEDS: DILTIAZEM HCL 5 MG/ML 5 ML VIAL IV ONE ×2 (11:40→14:00)
[2024-04-26 11:50] LABS: ANION GAP 14.3 mmol/L (8-16); CALCIUM 9.3 mg/dL (8.4-10.2); CREATININE, SERUM 0.92 mg/dL (0.57-1.11); POTASSIUM 4.3 mmol/L (3.5-5.1); TROPONIN I 0.007 ng/mL (0-0.300)
[2024-04-26] MEDS ORDERED: ONDANSETRON HCL INJ 2MG/ML 2ML 2 MG/ML VIAL IV PRN (13:00)
[2024-04-26] MEDS ORDERED: LABETALOL HCL 5 MG/ML 20ML VIAL IV PRN (13:45)
[2024-04-26] MEDS ORDERED: ACETAMINOPHEN 325 MG TAB PO PRN (13:45)
[2024-04-26] MEDS ORDERED: POLYETHYLENE GLYCOL 3350 17 GM PACK PO PRN (13:45)
[2024-04-26] MEDS: DILTIAZEM HCL 125 ML IV SCH (18:27)
[2024-04-26] MEDS ORDERED: METOPROLOL SUCCINATE 50 MG TAB XL ONE (18:31)
[2024-04-26] MEDS: METOPROLOL SUCCINATE 50 MG TAB XL PO ONE (18:33)
[2024-04-26] MEDS: DOCUSATE SODIUM 100 MG CAP PO SCH (18:35)
[2024-04-26] MEDS: DIGOXIN INJ 0.25 MG/ML 2 ML AMP IV ONE (20:22)
[2024-04-26] MEDS ORDERED: MULTAQ 400MG T400 MG PO (21:27)
[2024-04-27] VITALS (11 sets, daily range): BP systolic 85–146; BP diastolic 64–118; PULSE 49–138; RESP 12–28; TEMP 97.9; O2SAT 95–100
[2024-04-27 06:53] LABS: BASOPHILS % 0.4 % (0.0-1.0); EOSINOPHILS # (AUTO) 0.1 (0.0-0.4); EOSINOPHILS % 1.2 % (0.0-6.0); HEMATOCRIT 36.1 % (34.2-44.1); HEMOGLOBIN 11.7 g/dL (12.0-16.0); LYMPHOCYTES # (AUTO) 0.9 (1.0-3.2); MEAN CORPUSCULAR HGB CONC 32.4 g/dL (31-35); MEAN CORPUSCULAR VOLUME 95.8 fL (81-99); MONOCYTES # (AUTO) 0.5 (0.2-0.8); MONOCYTES % 9.2 % (4.4-11.3); NEUTROPHILS # (AUTO) 3.6 (2.1-6.9); NEUTROPHILS % 71.8 % (38.7-80.0); PLATELET COUNT 204 x10e3/uL (140-360); RED BLOOD COUNT 3.77 x10e6/uL (3.6-5.1); RED CELL DISTRIBUTION WIDTH 13.4 % (11.7-14.4); WHITE BLOOD COUNT 4.99 x10e3/uL (4.8-10.8)
[2024-04-27 07:21] LABS: ALBUMIN 3.7 g/dL (3.5-5.0); ALBUMIN/GLOBULIN RATIO 1.5 (0.8-2.0); ANION GAP 12.2 mmol/L (8-16); CALCIUM 9.2 mg/dL (8.4-10.2); CHOL/HDL RATIO 2.5 (3.0-3.6); CREATININE, SERUM 0.85 mg/dL (0.57-1.11); PHOSPHORUS 3.4 MG/DL (2.3-4.7); POTASSIUM 4.2 mmol/L (3.5-5.1); TOTAL PROTEIN 6.1 g/dL (6.5-8.1)
[2024-04-27 07:44] LABS: FREE T4 (FREE THYROXINE) 1.11 ng/dL (0.8-1.8); THYROID STIMULATING HORMONE 1.837 uIU/mL (0.350-4.940)
[2024-04-27] MEDS: FAMOTIDINE 20 MG TAB PO SCH (08:21)
[2024-04-27] MEDS: AMIODARONE HCL 200 MG TAB PO SCH (12:52)
[2024-04-27] MEDS: METOPROLOL SUCCINATE 25 MG TAB XL PO SCH (12:52)
[2024-04-27] MEDS ORDERED: AMIODARONE HCL200 MG PO (16:37)
[2024-04-27] MEDS ORDERED: ONDANSETRON ODT4 MG PO (16:37)
[2024-04-27] MEDS ORDERED: ACETAMINOPHEN325 M1 PO (16:37)
[2024-04-27] MEDS ORDERED: TOPROL XL25 MG PO (16:37)
[2024-04-27] MEDS ORDERED: LEVOTHYROXINE SODIUM 75 MCG TAB PO SCH (21:00)
== END 2024-04-27 17:56 | disposition home or self-care (01) | DRG 310 ==
LOC: ER 10:56 → ERHOLD 12:58 → ICU 21:03
PROVIDERS: ADMIT Internal Medicine; ATTEND Internal Medicine
DX: I48.91 Unspecified atrial fibrillation (principal); Z99.81 Dependence on supplemental oxygen; E03.9 Hypothyroidism, unspecified; E11.9 Type 2 diabetes mellitus without complications; E78.49 Other hyperlipidemia; G47.33 Obstructive sleep apnea (adult) (pediatric); J45.909 Unspecified asthma, uncomplicated; R53.1 Weakness; K21.9 Gastro-esophageal reflux disease without esophagitis; Z79.01 Long term (current) use of anticoagulants; Z79.890 Hormone replacement therapy; Z90.49 Acquired absence of other specified parts of digestive tract; Z90.710 Acquired absence of both cervix and uterus; Z88.1 Allergy status to other antibiotic agents; Z88.8 Allergy status to other drugs, medicaments and biological substances; Z87.891 Personal history of nicotine dependence; Z82.49 Family history of ischemic heart disease and other diseases of the circulatory system
CPT/HCPCS: 36415; 80048; 80053; 80061; 82550; 83036; 83735; 84100; 84439; 84443; 84484; 85025; 93005; 94799; 99252; 99284; J1160